=== PATIENT | male | born 1980 | race Caucasian/White ===

== ENCOUNTER 2017-08-22 10:08 | Observation (INO) ==
[2017-08-22 10:33] LABS: Bilirubin,Urine Negative (Negative); Blood,Urine Small (Negative); Color,Urine Yellow (Yellow); Glucose,Urine (UA) Normal (Normal); Ketones,Urine Trace mg/dL (Negative); Leukocyte Esterase,Urine Moderate (Negative); Nitrite,Urine Negative (Negative); Protein,Urine 30 mg/dL (Neg-Trace); Specific Gravity,Urine 1.022 (1.010-1.025); Urobilinogen,Urine Normal (Normal)
[2017-08-22] MEDS ORDERED: 0.9 % Sodium Chloride 1,000 ML IVC ONE (10:33)
[2017-08-22] MEDS ORDERED: Ondansetron 4 MG/2 ML VIAL IVP ONE (10:33)
[2017-08-22] MEDS ORDERED: *HR* FentaNYL (PF) 100 MCG/2 ML VIAL IVP ONE (10:33)
[2017-08-22 10:35] LABS: Bacteria,Urine None Seen per hpf (None-Few); Hyaline Casts,Urine Moderate per lpf (None-Few); Squamous Epithelial Cell,Urine Few per lpf (None-Few); WBC,Urine TNTC per hpf (0-3)
[2017-08-22 10:39] LABS: Basophils # 0.1 K/mcL (0.0-0.2); Basophils % 0.7 %; Eosinophils # 0.3 K/mcL (0.0-0.6); Eosinophils % 3.3 %; Hematocrit 47.7 % (37.5-50.1); Hemoglobin 16.6 g/dL (12.9-16.9); Immature Granulocytes % 0.2 % (0-4); Lymphocytes # 1.9 K/mcL (0.6-4.6); Mean Corpuscular HGB Conc 34.8 g/dL (31.6-35.5); Mean Corpuscular Hemoglobin 33.5 pg (28.0-33.3); Mean Corpuscular Volume 96.4 fL (83.0-100.0); Mean Platelet Volume 9.7 fL (9.4-12.4); Monocytes # 0.4 K/mcL (0.0-1.3); Neutrophils # 5.6 K/mcL (1.6-8.9); Platelet Count 205 K/mcL (140-400); Red Blood Count 4.95 M/mcL (4.19-5.50); Segmented Neutrophils % 67.8 %
[2017-08-22 10:39] LABS: Clarity,Urine Slightly Hazy (Clear)
[2017-08-22 10:49] LABS: Mucus,Urine Moderate (Few)
[2017-08-22 10:50] LABS: RBC,Urine 30-50 per hpf (0-3)
[2017-08-22 10:55] LABS: BUN/Creatinine Ratio 17 (6-26); Blood Urea Nitrogen 17 mg/dL (6-20); Calcium 9.6 mg/dL (8.6-10.3); Carbon Dioxide 25 mEq/L (23-29); Chloride 108 mEq/L (98-107); Glucose 95 mg/dL (70-105); Osmolality,Calculated 285 (280-300); Potassium 3.7 mEq/L (3.5-5.1); Sodium 137 mEq/L (136-145); eGFR For African Americans > 60 (> 60); eGFR For Non-African Americans > 60 (> 60)
--- NOTE | 2017-08-22 10:55 | Emergency Department Note ---
Disposition Clinical Impression: Ureteral stone with hydronephrosis Disposition: Admitted As Inpatient Condition: Fair Referrals: NONE,PCP [Primary Care Provider] - Constantine Orta [Family Provider] - Forms: ED Satisfaction Letter, Work/School Release Time of Disposition: 11:29 General Adult HPI - General Chief complaint: ED Abdominal Pain Stated complaint: R flank pain Time Seen by Provider: 08/22/17 10:18 Source: patient Limitations: no limitations Nursing Notes Reviewed: Yes Vital Signs Reviewed: Yes - History of Present Illness HPI Narrative: Nontoxic appearing 37-year-old male presents for worsening right flank pain. He was seen at [place] emergency department yesterday where he was diagnosed with bilateral obstructing stones and severe hydronephrosis. This case was discussed with Dr. Bennett, urologist. The patient was to follow-up with Dr. Bennett tomorrow however was instructed to return to the emergency department if the pain worsened. He denies any dysuria, fever, chills, nausea, vomiting, or abdominal pain Onset (ago): day(s) Location: other (Right flank) Pain Severity: severe Pain Scale: 9 Quality: sharp Consistency: Worsening Associated symptoms: Reports: denies other symptoms Treatments Prior to Arrival: other - Related Data Home Medications Medication Instructions Recorded Confirmed No Known Home Drugs 08/22/17 08/22/17 Allergies Allergy/AdvReac Type Severity Reaction Status Date / Time codeine AdvReac Itching Verified 08/22/17 10:40 All systems ED: reviewed and negative except as stated. Constitutional: Denies: fever, chills, weakness, weight change Eyes: Denies: eye pain, eye discharge, vision change ENT ED: Denies: ear pain, throat pain, dental pain, hearing loss, epistaxis, congestion, dysphagia Cardiovascular: Denies: chest pain, palpitations, dyspnea on exertion, edema, syncope Respiratory: Denies: cough, dyspnea, wheezes, hemoptysis, stridor Gastrointestinal: Denies: abdominal pain, nausea, vomiting, diarrhea, constipation, hematemesis, melena, hematochezia Genitourinary: Denies: urgency, dysuria, frequency, hematuria Musculoskeletal: Reports: as per HPI, other (Right flank pain). Denies: back pain, neck pain, arthralgia, myalgia Integumentary: Denies: rash, abrasion, lesions Neurological: Denies: headache, weakness, numbness, paresthesias, confusion, abnormal gait, vertigo Psychiatric: Denies: anxiety, depression, suicidal thoughts, homicidal thoughts , auditory hallucinations, visual hallucinations Endocrine: Denies: fatigue Hematological/Lymphatic: Denies: easy bleeding, easy bruising Allergic/Immunologic: Denies: facial swelling, urticaria Past Medical History - Past Medical History Attestation: Yes The following information was validated with the patient. Source: patient, nursing notes reviewed Medical history: Reports: kidney stones Psychiatric history: Reports: bipolar - Social History Smoking Status: Current every day smoker Smokeless Tobacco Status: No Alcohol use: Reports: occasionally Drug use: Reports: marijuana Physical Exam - General Limitations: no limitations General appearance: alert - Head Head exam: atraumatic, normocephalic, normal inspection - Eye Eye exam: Present: normal appearance, PERRL, EOMI. Absent: nystagmus - ENT ENT exam: mucous membranes moist - Neck Neck exam: Present: normal inspection, full ROM, trachea midline - Chest Chest inspection: Present: normal inspection, symmetric chest wall rise - Respiratory Respiratory exam: Present: normal lung sounds bilaterally - Cardiovascular Cardiovascular exam: Present: regular rate, normal rhythm, normal heart sounds - Abdominal Exam Abdominal exam: Present: soft, Non-Tender, normal bowel sounds - Extremities Exam Extremities exam: Present: normal inspection, full ROM. Absent: tenderness, pedal edema - Back Exam Back exam: Present: full ROM, CVA tenderness (R) - Neurological Exam Neurological exam: Present: alert, oriented X3, normal gait - Psychiatric Psychiatric exam: Present: normal affect, normal mood - Skin Skin exam: Present: warm, dry, intact, normal color Course Course Narrative: ORDER PHYSICIAN: Thanh SIEGELAD: DATE OF SERVICE: 08/21/17 FOLLOW UP: ACCESSION NUMBERS(S): [id number] PROCEDURE(S): CT abd pelvis wo no iv no oral REASON FOR EXAM: right flank pain cc: Thanh Joshi; PCP NO; ~ EXAMINATION: CT OF THE ABDOMEN AND PELVIS WITHOUT CONTRAST, 08/21/2017 6:01 pm TECHNIQUE: CT of the abdomen and pelvis was performed without the administration of intravenous contrast. Multiplanar reformatted images are provided for review. Dose modulation, iterative reconstruction, and/or weight based adjustment of the mA/kV was utilized to reduce the radiation dose to as low as reasonably achievable. COMPARISON: None HISTORY: ORDERING SYSTEM PROVIDED HISTORY: right flank pain Initial exam. FINDINGS: Lower Chest: Visualized portion of the lower chest demonstrates no acute abnormality. Organs: Liver and spleen, gallbladder, pancreas and adrenal glands are normal. The right kidney demonstrates a nonobstructing inferior pole calculus measuring 1.2 cm. There is a second nonobstructing inferior pole calculus measuring 3.7 mm. The left kidney demonstrates severe hydronephrosis. Left renal inferior pole calculus measures 5.8 mm. There is a dominant midpole collecting system calculus measuring 9 mm. A second large calculus within the proximal ureter image 56 measuring 1 cm. GI/Bowel: There are no features of bowel obstruction or bowel wall inflammatory change. The appendix is normal. Pelvis: The bladder and rectum are normal. Peritoneum/Retroperitoneum: No intraperitoneal free air or free fluid. No evidence of mesenteric or retroperitoneal lymphadenopathy. Bones/Soft Tissues: No suspicious lytic or blastic osseous lesion. CT/CT abd pelvis wo no iv no oral IMPRESSION: 1. Severe left renal hydronephrosis with multiple partially obstructing left central pelvis and proximal ureteral calcifications measuring up to 1 cm. 2. Nonobstructing right renal calculi measuring up to 1.2 cm. D/ / 08/21/2017 18:14:19 Bruce Monroe MD / [facility] Interpreting Provider: Bruce Monroe MD 1130: I spoke with Dr. Bennett, urologist publications sales representative. Dr. Bennett is aware of this patient from yesterday's conversation with the emergency department physician at [place]. Dr. Bennett has agreed to admit the patient to his services for further evaluation and treatment of his left-sided ureterolithiasis and hydronephrosis. I discussed this plan with Dr. Hines. Dr. Hines has had a [id number] evaluation with the patient and agrees with this plan. - Reevaluation(s) Reevaluation #1: The patient states significant improvement in pain after the administration of IV medication. Time: 11:29 Vital Signs Temperature 98.4 F 08/22/17 10:11 Pulse Rate 66 08/22/17 10:11 Respiratory Rate 08/22/17 10:11 Blood Pressure 159/78 08/22/17 10:11 O2 Sat by Pulse Oximetry 08/22/17 10:11 Temperature 98.4 F 08/22/17 10:11 Pulse Rate 66 08/22/17 10:11 Respiratory Rate 08/22/17 10:11 Blood Pressure 159/78 08/22/17 10:11 O2 Sat by Pulse Oximetry 100 08/22/17 10:11 Oxygen Delivery Oxygen Delivery Room Air Medical Decision Making - Medical Records Medical records reviewed: Yes I reviewed the patient's medical records. - Lab Data Lab results reviewed: Yes I reviewed the patient's lab results. Result diagrams: 08/22/17 10:30 08/22/17 10:30 Lab Results 08/22/17 08/22/17 08/22/17 Range/Units 10:18 10:30 10:30 WBC 8.2 (4.3-11.1) K/mcL RBC 4.95 (4.19-5.50) M/mcL Hgb 16.6 (12.9-16.9) g/dL Hct 47.7 (37.5-50.1) % MCV 96.4 (83.0-100.0) fL MCH 33.5 H (28.0-33.3) pg MCHC 34.8 (31.6-35.5) g/dL RDW 12.0 (11.5-14.5) % Plt Count 205 (140-400) K/mcL MPV 9.7 (9.4-12.4) fL Immature Gran % 0.2 (0-4) % Seg Neutrophils % 67.8 % Lymphocytes % 23.0 % Monocytes % 5.0 % Eosinophils % 3.3 % Basophils % 0.7 % Neutrophils # 5.6 (1.6-8.9) K/mcL Lymphocytes # 1.9 (0.6-4.6) K/mcL Monocytes # 0.4 (0.0-1.3) K/mcL Eosinophils # 0.3 (0.0-0.6) K/mcL Basophils # 0.1 (0.0-0.2) K/mcL Sodium 137 (136-145) mEq/L Potassium 3.7 (3.5-5.1) mEq/L Chloride 108 H (98-107) mEq/L Carbon Dioxide 25 (23-29) mEq/L BUN 17 (6-20) mg/dL Creatinine 0.98 (0.70-1.30) mg/dL Est GFR ( Amer) > 60 (> 60) Est GFR (Non-Af Amer) > 60 (> 60) BUN/Creatinine Ratio 17 (6-26) Glucose 95 (70-105) mg/dL Calculated Osmolality 285 (280-300) Calcium 9.6 (8.6-10.3) mg/dL Urine Color Yellow (Yellow) Urine Clarity Slightly Hazy (Clear) Urine pH 6.0 (5.0-8.0) pH Units Ur Specific [place] 1.022 (1.010-1.025) Urine Protein 30 H (Neg-Trace) mg/dL Urine Glucose (UA) Normal (Normal) mg/dL Urine Ketones Trace H (Negative) mg/dL Urine Blood Small H (Negative) Urine Nitrite Negative (Negative) Urine Bilirubin Negative (Negative) Urine Urobilinogen Normal (Normal) mg/dL Ur Leukocyte Esterase Moderate H (Negative) Urine Microscopic RBC 30-50 H (0-3) per hpf Urine Microscopic WBC TNTC H (0-3) per hpf Ur Squamous Epith Cells Few (None-Few) per lpf Urine Bacteria None Seen (None-Few) per hpf Hyaline Casts Moderate H (None-Few) per lpf Urine Mucus Moderate H (Few) Ur Culture Indicated? YES A (NO)
[2017-08-22] MEDS ORDERED: Ondansetron 4 MG/2 ML VIAL IVP PRN (12:39)
[2017-08-22] MEDS ORDERED: *HR* Promethazine 25 MG/ML VIAL IVP PRN (12:39)
[2017-08-22] MEDS ORDERED: Naloxone 0.4 MG/ML INJ IVP PRN (12:39)
[2017-08-22] MEDS ORDERED: Ketorolac 15 MG/ML VIAL IVP PRN (12:39)
[2017-08-22] MEDS ORDERED: *HR* OxyCODONE Immed Rel 5 MG TABLET PO PRN (12:39)
[2017-08-22] MEDS: *HR* HYDROcodone/Acet 5/325 mg TABLET PO SCH ×2 (15:49→20:13)
[2017-08-22] MEDS: 0.9 % Sodium Chloride 1,000 ML IVC SCH (15:49)
[2017-08-22] MEDS: cefTRIAXone 1,000 MG in Water for inj. (sterile) 20 ML 10 ML IVP SCH (15:49)
--- NOTE | 2017-08-22 17:54 | Urology History & Physical ---
Date of Encounter: 08/22/17 Time of Encounter: 17:51 Assessment and Plan (1) Ureteral stone with hydronephrosis Current Visit: Yes Status: Acute I reviewed the CT images which demonstrate a 1 cm left ureteropelvic junction stone. There is a stone in the renal pelvis directly behind this. I suspect this is the cause of his pain despite the unusual location of his perceived pain. He has a lower pole stone on the right side that does not appear to be obstructing. Patient's recent issues with pain control will not allow discharge and outpatient management. We'll proceed with cystoscopy at great pyelogram and stent placement on the left side. We'll also perform a retrograde pyelogram on the right confirm no obstruction because of his unusual pain presentation. This procedure was discussed in detail. All questions answered. He understands he will require a staged treatment of the stone. He understands stent discomfort and complications History of Present Illness Chief complaint: Flank pain HPI: Mr. Beckman is a 37 year old male 2 recent emergency room visits for a 1 cm proximal ureteral stone on the left side. Patient states he's had right sided discomfort but it has crossed over his back. He reports the pain has been severe. Positive nausea. No fever. No history of stones. Reports had similar pain but not as severe for at least 1 year Past Med Surg Social Fam HX - Past Medical History Medical history: kidney stones Psychiatric history: bipolar - Past Surgical History Surgical History: vasectomy - Social History Smoking Status: Current every day smoker Packs per day: 1 Smokeless Tobacco Status: No Alcohol use: occasionally Drug use: marijuana Medications and Allergies No Known Home Drugs 08/22/17 [History] 3 Allergy/AdvReac Type Severity Reaction Status Date / Time codeine AdvReac Itching Verified 08/22/17 10:40 Review of Systems - Constitutional no chills, no fever(s) - EENT Nose, mouth and throat: no dizziness - Cardiovascular no chest pain - Respiratory no cough - Gastrointestinal abdominal pain, nausea - Genitourinary flank pain, hematuria - Musculoskeletal back pain - Integumentary no lesions - Neurological no confusion - Psychiatric no anxiety - Hematologic/Lymphatic no easy bleeding - Allergic/Immunologic no throat swelling Exam Initial Vital Signs Temp Pulse Resp BP Pulse Ox 98.4 F 66 18 159/78 100 08/22/17 10:11 08/22/17 10:11 08/22/17 10:11 08/22/17 10:11 08/22/17 10:11 - General physical appearance Present: well developed, no distress - Eyes Present: PERRL, normal ocular movement, conjunctiva is clear - ENT Present: normal nares - Neck Present: no masses, no lymphadenopathy - Respiratory Present: normal respiratory effort - Cardiovascular Cardiovascular exam IM: RRR - Abdomen Abdomen: Present: soft. Absent: tender, masses, suprapubic tenderness - Integumentary Present: no rash, no growths, no abnormal pigmentation - Neurologic Present: normal coordination. Absent: disoriented, confused - Musculoskeletal Present: normal gait Urology Results - Labs 08/22/17 10:30 08/22/17 10:30 Abnormal lab results MCH 33.5 pg (28.0-33.3) H 08/22/17 10:30 Chloride 108 mEq/L (98-107) H 08/22/17 10:30 Urine Protein 30 mg/dL (Neg-Trace) H 08/22/17 10:18 Urine Ketones Trace mg/dL (Negative) H 08/22/17 10:18 Urine Blood Small (Negative) H 08/22/17 10:18 Ur Leukocyte Esterase Moderate (Negative) H 08/22/17 10:18 Urine Microscopic RBC 30-50 per hpf (0-3) H 08/22/17 10:18 Urine Microscopic WBC TNTC per hpf (0-3) H 08/22/17 10:18 Hyaline Casts Moderate per lpf (None-Few) H 08/22/17 10:18 Urine Mucus Moderate (Few) H 08/22/17 10:18 Ur Culture Indicated? YES (NO) A 08/22/17 10:18 All other labs normal.
[2017-08-23] MEDS: *HR* HYDROcodone/Acet 5/325 mg TABLET PO SCH ×5 (05:51→18:36)
[2017-08-23] MEDS: 0.9 % Sodium Chloride 1,000 ML IVC SCH ×2 (05:53→18:36)
[2017-08-23] MEDS: cefTRIAXone 1,000 MG in Water for inj. (sterile) 20 ML 10 ML IVP SCH (07:25)
--- NOTE | 2017-08-23 15:23 | Anesthesia Evaluation PreOp ---
Date of Encounter: 08/23/17 Time of Encounter: 15:21 - Past History Planned Operation: C & P, Left Ureteral Stent Placement Cardiac History: Denies any Significant Hx Pulmonary History: Smoker (18 years) CORE MICROARCHITECT History: Denies Any Significant HX Other Medical History: Denies Any Significant HX Anesthesia History: No Prior Anesthetic Complications, Past Anesthesia Alcohol Use: occasionally Drug use: marijuana Medications and Allergies No Known Home Drugs 08/22/17 [History] 3 Allergy/AdvReac Type Severity Reaction Status Date / Time codeine AdvReac Itching Verified 08/22/17 10:40 - Meds/Allergy Pre-op Review Medications Reviewed: Yes Allergies Reviewed: Yes Beta Blockers on Current Med List: No Anesthesia Results - Labs 08/22/17 10:30 08/22/17 10:30 Anesthesia Exam Vital Signs/O2 Sat, Most Current Temp Pulse Resp BP Pulse Ox 97.8 F 47 16 124/74 99 08/23/17 14:36 08/23/17 14:36 08/23/17 14:36 08/23/17 14:36 08/23/17 14:36 Height: 5'9''/1.75 m Weight: 132 lbs/60 kg NPO (# of Hours): 8 Pain Scale: 0 Pain Scale Used: Numeric (1 - 10) - HEENT Pupil (Motor): EOMI Mallampati: II Teeth: Normal Oral Opening: Greater than 3 - CORE MICROARCHITECT LOC: Oriented CORE MICROARCHITECT Motor: Normal RUE, Normal LUE, Normal RLE, Normal LLE, Normal Face CORE MICROARCHITECT Sensory: Normal: RUE, LUE, RLE, LLE, Face - Cardiac Rhythm: Regular Murmur: None - Pulmonary Breath Sounds: bilateral Clear Respiratory Effort: Symmetrical Anesthesia Assess/Plan ASA Score: 2 Modified Kavya Scale for Level of Consciousness: Cooperative, oriented, and tranquil Anesthetic Plan: General Monitoring Plan: Standard Monitors Recovery Plan: PACU
[2017-08-23] MEDS ORDERED: *HR* Propofol 200 MG/20 ML VIAL IVP ONE ×2 (15:39→16:31)
[2017-08-23] MEDS ORDERED: *HR* FentaNYL (PF) 100 MCG/2 ML VIAL ONE (15:41)
[2017-08-23] MEDS ORDERED: Lidocaine -MPF 2% 2 ML VIAL ONE (15:41)
[2017-08-23] MEDS ORDERED: Dexamethasone 4 MG/ML VIAL ONE (15:41)
[2017-08-23] MEDS ORDERED: Ondansetron 4 MG/2 ML VIAL ONE (15:41)
[2017-08-23] MEDS ORDERED: Isovue-300 50 ML VIAL IVP ONE (16:07)
[2017-08-23] MEDS ORDERED: *HR* Midazolam HCl 2 MG/2 ML VIAL ONE (16:20)
[2017-08-23] MEDS ORDERED: Ketorolac 30 MG/ML VIAL ONE (16:54)
[2017-08-23] MEDS ORDERED: *HR* HYDROcodone/Acet 10/325 mg TABLET PO PRN (16:59)
[2017-08-23] MEDS ORDERED: *HR* Promethazine 25 MG/ML VIAL IVP PRN ×2 (16:59→18:17)
--- NOTE | 2017-08-23 17:13 | Discharge Summary ---
Date of Encounter: 08/23/17 Time of Encounter: 17:11 - Discharge Diagnosis (1) Ureteral stone with hydronephrosis Priority: Primary Status: Resolved - Discharge Medications Prescriptions: HYDROcodone/Acet 10/325 mg [Shelby 10-325 mg] 1 each PO ONCE PRN 7 Days #20 tablet PRN Reason: Pain Home Medications: HYDROcodone/Acet 10/325 mg [Shelby 10-325 mg] 1 each PO ONCE PRN 7 Days #20 tablet 08/23/17 [Rx] Allergies/Adverse Reactions: 3 Allergy/AdvReac Type Severity Reaction Status Date / Time codeine AdvReac Itching Verified 08/22/17 10:40 Date of admission: 08/22/17 11:43 Primary care physician: PCP NONE Discharging clinician: Javid Bennett Anticipated date of discharge: 08/23/17 - Patient Status Disposition: Home, Self-Care Condition: Good Functional capacity at discharge: independent ambulation Overall status at discharge: patient is progressing back to baseline - Discharge Instructions Follow Up With: NONE,PCP [Primary Care Provider] - Constantine Orta [Family Provider] - Javid Bennett MD [Partnered Physician] - (My office will call to schedule stone procedure) Additional Instructions: Expect stent discomfort including urgency, frequency, burning on urination, blood in the urine, light flank pain. No activity restrictions Call if symptoms are severe or fever over 101 My office will call to schedule lithotripsy procedure - Diet and Activity Activity: other Diet: advance to your usual diet - Hospital Course Hospital course: Mr. Beckman is a 37 year old male obstructing left ureteral stone. Status post ureteral stent. Plan to discharge when symptoms controlled Time spent discussing smoking cessation with patient: 3 to 10 minutes - Time Spent with Patient Total time spent providing and/or coordinating discharge services: Less than 30 minutes Exam Initial Vital Signs Temp Pulse Resp BP Pulse Ox 98.4 F 66 18 159/78 100 08/22/17 10:11 08/22/17 10:11 08/22/17 10:11 08/22/17 10:11 08/22/17 10:11 - General physical appearance Present: well developed, no distress
--- NOTE | 2017-08-23 17:16 | Operative Note ---
Date of procedure: 08/23/17 Pre-op diagnosis: Right flank pain. Left 1 cm ureteropelvic junction stone with hydro- Post-op diagnosis: same Procedure: Cystoscopy. Bilateral retrograde pyelograms. Left ureteral stent placement Anesthesia: GETA Surgeon: Javid Bennett Was there an real estate legal assistant present: No Estimated blood loss (cc): 0 Specimen: none Condition: stable Disposition: PACU Procedure in Detail: PROCEDURE IN DETAIL: Patient was taken back to the operating room, positioned supine on the operating table. Anesthesia was applied without complication. They were moved into dorsal lithotomy. Careful attention was maintained to cushion all pressure points for patient's safety. They were prepped and draped in sterile fashion. Time-out was performed with the proper patient and procedure. A 21-Malawian rigid cystoscope was inserted into the bladder without difficulty. Systematic examination of bladder revealed no abnormalities. The left ureteral orifice was cannulated using a 5-Malawian ureteral Catheter and a retrograde pyelogram was performed using Isovue. A filling defect was identified which corresponded to the stone. At that point, a zip wire was placed through the 5-Malawian and confirmed in the renal pelvis with fluoroscopy. 4.8 x 26 ureteral stent was placed without resistance. Retrograde pyelogram was performed on the right side which did show a filling defect in the lower pole but no hydronephrosis or evidence of obstruction. No stent was placed. Bladder was drained.
--- NOTE | 2017-08-23 17:40 | Anesthesia Evaluation Post Op ---
Date of Encounter: 08/23/17 Time of Encounter: 17:40 - Vital Signs Vital Signs: Vital Signs/O2 Sat, Most Current Temp Pulse Resp BP Pulse Ox 98.2 F 49 16 140/81 100 08/23/17 17:13 08/23/17 17:33 08/23/17 17:33 08/23/17 17:33 08/23/17 17:33 - Lungs Lungs: Clear Ascult./Percussion - Airway Airway: Non-obstructed - Cardiovascular Regular Rate - Mental Status Mental Status: Alert & Oriented, Answers Appropriately - Pain Pain Scale: 0 Pain Scale used: Numeric (1 - 10) - Nausea Vomiting Nausea Vomiting: Not Present - Hydration Hydration: Ice chips, Has not voided - Discharge PostOp Status: Transfer Patient to floor
[2017-08-23] MEDS ORDERED: *HR* OxyCODONE Immed Rel 5 MG TABLET PO PRN (18:17)
[2017-08-23] MEDS ORDERED: Naloxone 0.4 MG/ML INJ IVP PRN (18:17)
[2017-08-23] MEDS ORDERED: Ondansetron 4 MG/2 ML VIAL IVP PRN (18:17)
[2017-08-23] MEDS ORDERED: Ketorolac 15 MG/ML VIAL IVP PRN (18:17)
[2017-08-23 18:29] VITALS: BP 144/82
[2017-08-23] MEDS ORDERED: *HR* HYDROcodone/Acet 5/325 mg TABLET PO SCH (20:00)
[2017-08-24] MEDS ORDERED: cefTRIAXone 1,000 MG in Water for inj. (sterile) 20 ML 10 ML IVP SCH (09:00)
== END 2017-08-23 19:45 | disposition home or self-care (01) ==
LOC: EMEROO 10:08 → 3BNU 10:08
PROVIDERS: ADMIT Urology; ATTEND Urology

== ENCOUNTER 2017-10-21 10:29 | Observation (INO) ==
[2017-10-21] MEDS ORDERED: *HR* Promethazine 25 MG/ML VIAL IVP PRN (11:53)
[2017-10-21] MEDS ORDERED: Ketorolac 15 MG/ML VIAL IVP PRN (11:53)
[2017-10-21] MEDS ORDERED: Ondansetron 4 MG/2 ML VIAL IVP PRN (11:53)
[2017-10-21] MEDS ORDERED: OXYCODONE Oral CONC 10 MG/0.5 ML ORAL.SYG SL PRN (11:53)
[2017-10-21] MEDS ORDERED: Naloxone 0.4 MG/ML INJ IVP PRN (11:53)
[2017-10-21] MEDS: 0.9 % Sodium Chloride 1,000 ML IVC SCH (12:19)
[2017-10-21] MEDS: cefTRIAXone 1,000 MG in Water for inj. (sterile) 20 ML 10 ML IVP SCH (12:20)
[2017-10-21] MEDS: *HR* OxyCODONE/APAP 5/325 TABLET PO PRN ×3 (12:25→21:27)
[2017-10-22] MEDS: 0.9 % Sodium Chloride 1,000 ML IVC SCH (02:02)
[2017-10-22] MEDS: *HR* OxyCODONE/APAP 5/325 TABLET PO PRN (06:13)
--- NOTE | 2017-10-22 06:37 | Urology History & Physical ---
Date of Encounter: 10/22/17 Time of Encounter: 06:36 Assessment and Plan (1) Ureteral stone with hydronephrosis Current Visit: No Status: Resolved Patient has 2 large proximal ureteral stones. At least one of these is likely a larger fragment left over from his ESWL. We will plan to place a ureteral stent today to decompress the kidney. Urine cultures are pending. He will likely require a ureteroscopic stone extraction in the near future. Patient understands and is in for the procedure and risk of the procedure which includes injury to his urinary tract, stricture, perforation, reaction to contrast, stent complications. History of Present Illness Chief complaint: flank pain HPI: Mr. Beckman is a 37 year old male known to the urology office. Status post shockwave lithotripsy approximately 4 weeks ago. Has unwell and passed multiple fragments but recent increase in flank pain and nausea. No fever. CT scan reveals a 7 mm and 6 mm proximal left ureteral stone. 9 mm renal pelvis or renal stone on the left as well. Again noted is 1.2 cm lower pole right renal stone. Past Med Surg Social Fam HX - Past Medical History Medical history: kidney stones Psychiatric history: bipolar - Past Surgical History Surgical History: vascular surgery - Social History Smoking Status: Current every day smoker Smokeless Tobacco Status: No Alcohol use: occasionally Drug use: marijuana Medications and Allergies No Known Home Drugs 10/21/17 [History] 3 Allergy/AdvReac Type Severity Reaction Status Date / Time codeine AdvReac Itching Verified 09/12/17 08:46 Review of Systems - Constitutional no chills, no fever(s) - EENT Nose, mouth and throat: no dizziness - Cardiovascular no chest pain - Gastrointestinal abdominal pain, nausea - Genitourinary flank pain - Musculoskeletal back pain - Integumentary no erythema - Neurological no confusion - Psychiatric no anxiety - Hematologic/Lymphatic no easy bleeding - Allergic/Immunologic no throat swelling Exam Initial Vital Signs Temp Pulse Resp BP Pulse Ox 98.1 F 88 15 106/64 98 10/21/17 14:04 10/21/17 14:04 10/21/17 14:04 10/21/17 14:04 10/21/17 14:04 - General physical appearance Present: well developed, no distress - Eyes Present: PERRL - ENT Present: normal nares - Neck Present: no masses - Respiratory Present: normal respiratory effort - Cardiovascular Cardiovascular exam IM: RRR - Abdomen Abdomen: Present: soft. Absent: masses, suprapubic tenderness - Integumentary Present: no rash - Neurologic Present: normal coordination. Absent: disoriented, confused Urology Results - Labs Abnormal lab results POC Glucose 103 mg/dL (68-89) H 10/22/17 05:18 All other labs normal.
[2017-10-22] MEDS ORDERED: Famotidine 20 MG/2 ML VIAL IVP ONE (07:06)
--- NOTE | 2017-10-22 07:08 | Anesthesia Evaluation PreOp ---
Date of Encounter: 10/22/17 Time of Encounter: 07:00 - Past History Planned Operation: Cystoscopy Stent Cardiac History: Denies any Significant Hx Pulmonary History: Smoker TANK SETTER HELPER History: Denies Any Significant HX Other Medical History: Other (PTSD Anxiety [place]) Anesthesia History: No Prior Anesthetic Complications Alcohol Use: none, occasionally Drug use: none, marijuana Medications and Allergies No Known Home Drugs 10/21/17 [History] 3 Allergy/AdvReac Type Severity Reaction Status Date / Time codeine AdvReac Itching Verified 09/12/17 08:46 - Meds/Allergy Pre-op Review Medications Reviewed: Yes Allergies Reviewed: Yes Beta Blockers on Current Med List: No Anesthesia Results - Labs Laboratory Tests 10/21/17 10/21/17 08:44 08:44 Hgb 15.5 Hct 42.4 Plt Count 199 Sodium 138 Potassium 3.7 BUN 13 Creatinine 1.02 Anesthesia Exam Vital Signs/O2 Sat/Glucose, Most Current Temp Pulse Resp BP Pulse Ox 10/22/17 06:49 97.6 F 64 15 115/72 98 10/22/17 03:20 98.5 F 64 16 101/61 98 Height: 5'10 Weight: 146 lbs NPO (# of Hours): MN Pain Scale: 0 - HEENT Pupil (Motor): Pupils equal, EOMI Mallampati: II Teeth: Poor dentition Oral Opening: Greater than 3 - TANK SETTER HELPER LOC: Oriented TANK SETTER HELPER Motor: Normal RUE, Normal LUE, Normal RLE, Normal LLE, Normal Face TANK SETTER HELPER Sensory: Normal: RUE, LUE, RLE, LLE, Face - Cardiac Rhythm: Regular Murmur: None JVD: No Carotid Bruit: No - Pulmonary Breath Sounds: bilateral Clear Respiratory Effort: Symmetrical Anesthesia Assess/Plan ASA Score: 2 Modified Kavya Scale for Level of Consciousness: Cooperative, oriented, and tranquil Anesthetic Plan: General Monitoring Plan: Standard Monitors Recovery Plan: PACU (Discussed GA, agrees to proceed)
[2017-10-22] MEDS ORDERED: Albuterol 2.5 MG/3 ML NEBULIZER IH ONE (07:10)
[2017-10-22] MEDS ORDERED: Albuterol 2.5 MG/3 ML NEBULIZER ONE (07:14)
[2017-10-22] MEDS ORDERED: Famotidine 20 MG/2 ML VIAL ONE (07:17)
[2017-10-22] MEDS ORDERED: *HR* Propofol 200 MG/20 ML VIAL IVP ONE (07:23)
[2017-10-22] MEDS ORDERED: *HR* FentaNYL (PF) 100 MCG/2 ML VIAL ONE (07:23)
[2017-10-22] MEDS ORDERED: Dexamethasone 4 MG/ML VIAL ONE (07:23)
[2017-10-22] MEDS ORDERED: Lidocaine -MPF 2% 2 ML VIAL ONE (07:23)
[2017-10-22] MEDS ORDERED: Ondansetron 4 MG/2 ML VIAL ONE (07:23)
[2017-10-22] MEDS ORDERED: *HR* Succinylcholine 200 MG/10 ML VIAL IVP ONE (07:25)
[2017-10-22] MEDS ORDERED: *HR* Midazolam HCl 2 MG/2 ML VIAL ONE (07:35)
[2017-10-22] MEDS: cefTRIAXone 1,000 MG in Water for inj. (sterile) 20 ML 10 ML IVP SCH (07:45)
[2017-10-22] MEDS ORDERED: Isovue-300 50 ML VIAL IVP ONE (07:53)
--- NOTE | 2017-10-22 08:35 | Operative Note ---
Date of procedure: 10/22/17 Pre-op diagnosis: Multiple left proximal ureteral stones Post-op diagnosis: same Procedure: Cystoscopy. Left retrograde pyelogram. Left ureteral stent placement. Anesthesia: GETA Surgeon: Javid Bennett Was there an assistant superintendent present: No Estimated blood loss (cc): 0 Specimen: none Condition: stable Disposition: PACU Procedure in Detail: PROCEDURE IN DETAIL: Patient was taken back to the operating room, positioned supine on the operating table. Anesthesia was applied without complication. They were moved into dorsal lithotomy. Careful attention was maintained to cushion all pressure points for patient's safety. They were prepped and draped in sterile fashion. Time-out was performed with the proper patient and procedure. A 21-Namibian rigid cystoscope was inserted into the bladder without difficulty. Systematic examination of bladder revealed no abnormalities. The ureteral orifice was cannulated using a 5-Namibian ureteral Catheter and a retrograde pyelogram was performed using Isovue. 2 filling defects were identified which corresponded to the stones. At that point, a zip wire was placed through the 5-Namibian and confirmed in the renal pelvis with fluoroscopy. I was able to guide the zip wire into the upper pole system which also included the 9 mm stone mention on CT scan. A 6 x 26 ureteral stent was placed over the zip wire, passed the stones and into the correct position. Bladder was drained. No string was left attached to the stent. No purulence was seen.
--- NOTE | 2017-10-22 08:38 | Discharge Summary ---
Orders not resulted at time of discharge: Pending orders 10/22/17 XR mercy 30 min [XR] Routine XR retrograde pyelogram [XR] Routine Date of Encounter: 10/22/17 Time of Encounter: 08:38 - Discharge Diagnosis (1) Ureteral stone with hydronephrosis Priority: Primary Status: Resolved Comments: s/p stent placement - Hospital Course Hospital course: Mr. Beckman is a 37 year old male admitted with multiple obstructing left ureteral calculi. Status post stent placement. Plan to discharge when pain controlled Time spent discussing smoking cessation with patient: 3 to 10 minutes - Time Spent with Patient Total time spent providing and/or coordinating discharge services: Less than 30 minutes Labs on day of discharge: Labs from last 24 hours 10/22/17 05:18 POC Glucose 103 H - Discharge Medications Prescriptions: OxyCODONE/APAP 5/325 [Percocet 5/325 MG] 1 each PO Q4HR PRN 7 Days #20 tablet PRN Reason: Pain Sulfamethoxazole/Trimeth DS [Bactrim DS] 1 each PO BID #6 tablet Home Medications: OxyCODONE/APAP 5/325 [Percocet 5/325 MG] 1 each PO Q4HR PRN 7 Days #20 tablet [Rx] Sulfamethoxazole/Trimeth DS [Bactrim DS] 1 each PO BID #6 tablet 10/22/17 [Rx] Allergies/Adverse Reactions: 3 Allergy/AdvReac Type Severity Reaction Status Date / Time codeine AdvReac Itching Verified 09/12/17 08:46 Date of admission: 10/21/17 11:38 Primary care physician: PCP NONE Discharging clinician: Javid Bennett Anticipated date of discharge: 10/22/17 Exam Initial Vital Signs Temp Pulse Resp BP Pulse Ox 98.1 F 88 15 106/64 98 10/21/17 14:04 10/21/17 14:04 10/21/17 14:04 10/21/17 14:04 10/21/17 14:04 - General physical appearance Present: no distress - Patient Status Disposition: Home, Self-Care Condition: Good Overall status at discharge: patient is progressing back to baseline - Discharge Instructions Follow Up With: NONE,PCP [Primary Care Provider] - Constantine Orta [Family Provider] - Javid Bennett MD [Partnered Physician] - (My office will call to schedule stone extraction) Additional Instructions: No activity restrictions required. My office will contact the patient to schedule the stone extraction. Expect some stent discomfort including urgency, frequency, burning on urination , light blood in the urine. Call if excessive symptoms or fever over 101 degrees\ Okay to take [id number] AZO for dysuria - Diet and Activity Activity: increase activity as tolerated Diet: advance to your usual diet
--- NOTE | 2017-10-22 08:38 | Anesthesia Evaluation Post Op ---
Date of Encounter: 10/22/17 Time of Encounter: 08:45 - Vital Signs Vital Signs: Vital Signs/O2 Sat/Glucose, Most Current Temp Pulse Resp BP Pulse Ox 10/22/17 06:49 97.6 F 64 15 115/72 98 - Lungs Lungs: Clear Ascult./Percussion - Airway Airway: Non-obstructed - Cardiovascular Regular Rate - Mental Status Mental Status: Alert & Oriented, Answers Appropriately - Pain Pain Scale: 0 - Nausea Vomiting Nausea Vomiting: Not Present - Hydration Hydration: Tolerates oral liquids - Discharge PostOp Status: Transfer Patient to floor
[2017-10-22] MEDS ORDERED: Ketorolac 15 MG/ML VIAL IVP PRN (09:09)
[2017-10-22] MEDS ORDERED: *HR* Promethazine 25 MG/ML VIAL IVP PRN (09:09)
[2017-10-22] MEDS ORDERED: Ondansetron 4 MG/2 ML VIAL IVP PRN (09:09)
[2017-10-22] MEDS ORDERED: Naloxone 0.4 MG/ML INJ IVP PRN (09:09)
[2017-10-22] MEDS ORDERED: *HR* OxyCODONE/APAP 5/325 TABLET PO PRN (09:09)
[2017-10-22] MEDS ORDERED: OXYCODONE Oral CONC 10 MG/0.5 ML ORAL.SYG SL PRN (09:09)
[2017-10-22] MEDS ORDERED: 0.9 % Sodium Chloride 1,000 ML IVC SCH (09:09)
[2017-10-22] MEDS ORDERED: cefTRIAXone 1,000 MG in Water for inj. (sterile) 20 ML 10 ML IVP SCH (10:00)
[2017-10-22 12:16] VITALS: BP 105/61
== END 2017-10-22 12:25 | disposition home or self-care (01) ==
LOC: 3ANU
PROVIDERS: ADMIT Urology; ATTEND Urology